=== PATIENT | male | born 1990 | race African-American/Black ===

== ENCOUNTER 2017-01-02 00:16 | Emergency (ER) | payer SELFPAY ==
[~2017-01-02] VITALS: Ht 177.8 cm; Wt 107.0 kg
[2017-01-02 00:18] VITALS: BP 111/65
[2017-01-02] MEDS ORDERED: IBUPROFEN 600MG TABLET PO ONE (07:00)
== END 2017-01-02 07:31 | disposition home or self-care (01) ==
LOC: ER 00:16
DX: S40.012A Contusion of left shoulder, initial encounter (principal); X58.XXXA Exposure to other specified factors, initial encounter; Y93.89 Activity, other specified; Y92.89 Other specified places as the place of occurrence of the external cause; Y99.8 Other external cause status
CPT/HCPCS: 99283

== ENCOUNTER 2017-03-25 08:12 | Emergency (ER) | payer MEDICAID ==
[~2017-03-25] VITALS: Ht 177.8 cm; Wt 105.0 kg
[2017-03-25 08:55] VITALS: BP 135/87
== END 2017-03-25 11:12 | disposition left against medical advice (07) ==
LOC: ER 08:12
DX: M79.643 Pain in unspecified hand (principal); Z53.21 Procedure and treatment not carried out due to patient leaving prior to being seen by health care provider

== ENCOUNTER 2021-02-13 22:20 | Emergency (ER) | payer MEDICAID ==
[~2021-02-13] VITALS: Ht 177.8 cm; Wt 107.0 kg
[2021-02-13 22:55] VITALS: BP 102/69
== END 2021-02-14 | disposition left against medical advice (07) ==
LOC: ER 22:20
DX: M25.511 Pain in right shoulder (principal); M79.604 Pain in right leg
CPT/HCPCS: 99281

== ENCOUNTER 2021-08-15 05:25 | Emergency (ER) | payer MEDICAID ==
[~2021-08-15] VITALS: Ht 177.8 cm; Wt 107.0 kg
[2021-08-15 05:31] VITALS: BP 109/69
[2021-08-15] MEDS ORDERED: ACETAMINOPHEN 325MG TABLET PO ONE (05:45)
[2021-08-15] MEDS ORDERED: IBUPROFEN 600MG TABLET PO ONE (05:45)
[2021-08-15] MEDS ORDERED: IBUP-2029 MT (06:36)
== END 2021-08-15 06:58 | disposition home or self-care (01) ==
LOC: ER 05:29
DX: M54.9 Dorsalgia, unspecified (principal)
CPT/HCPCS: 72070; 99283

== ENCOUNTER 2021-11-29 03:35 | Emergency (ER) | payer MEDICAID ==
[~2021-11-29] VITALS: Ht 177.8 cm; Wt 107.0 kg
[~2021-11-29 03:35] MED LIST: IBUP-2029 MT
[2021-11-29] MEDS ORDERED: OXYCODONE HCL/ACETAMINOPHEN 5/325MG TABLET PO ONE (05:30)
[2021-11-29 05:50] VITALS: BP 105/67
[2021-11-29] MEDS ORDERED: METH-653 MT (07:44)
[2021-11-29] MEDS ORDERED: IBUP-2029 MT (07:44)
== END 2021-11-29 07:58 | disposition home or self-care (01) ==
LOC: ER 03:35
DX: S09.8XXA Other specified injuries of head, initial encounter (principal); M54.9 Dorsalgia, unspecified; R07.89 Other chest pain; W10.9XXA Fall (on) (from) unspecified stairs and steps, initial encounter; Y93.89 Activity, other specified; Y92.9 Unspecified place or not applicable
CPT/HCPCS: 71045; 72070; 99284

== ENCOUNTER 2022-01-06 02:30 | Emergency (ER) | payer MEDICAID ==
[~2022-01-06] VITALS: Ht 177.8 cm; Wt 90.7 kg
[~2022-01-06 02:30] MED LIST changes: +METH-653 MT
[2022-01-06 02:59] VITALS: BP 124/85
== END 2022-01-06 03:48 | disposition home or self-care (01) ==
LOC: ER 02:30
DX: M79.606 Pain in leg, unspecified (principal); W10.9XXA Fall (on) (from) unspecified stairs and steps, initial encounter; Y93.89 Activity, other specified; Y92.89 Other specified places as the place of occurrence of the external cause; Y99.8 Other external cause status
CPT/HCPCS: 99281